=== PATIENT | male | born 1965 | race African-American/Black ===

== ENCOUNTER 2024-05-06 17:44 | Emergency (ER) | payer MEDICAID, MEDICARE, OTHER ==
[~2024-05-06] VITALS: Ht 185.4 cm; Wt 93.0 kg
[2024-05-06] MEDS: PREDNISONE 20MG TABLET PO STA (18:28)
[2024-05-06 18:46] VITALS: PULSE 85; RESP 24; O2SAT 95
[2024-05-06] MEDS: IPRATROPIUM BROMIDE (0.02%) 0.5MG/2.5ML NEB HHN STA (18:46)
[2024-05-06] MEDS: ALBUTEROL (0.083%) 2.5MG/3ML NEB HHN STA (18:46)
[2024-05-06 18:51] LABS: BASOPHILS % 0.8 % (0.0-2.0); EOSINOPHILS % 1.9 % (0.0-5.0); HEMATOCRIT. 41.9 % (42.0-52.0); HEMOGLOBIN. 14.4 g/dL (14.0-18.0); MEAN CORPUSCULAR HEMOGLOBIN 32.1 pg (28.0-32.0); MEAN CORPUSCULAR HGB CONC 34.4 g/dL (31.0-37.0); MEAN CORPUSCULAR VOLUME 93.5 fL (80.0-94.0); MEAN PLATELET VOLUME 9.9 fl (7.4-10.4); MONOCYTES % 14.6 % (2.0-8.0); NEUTROPHILS % 63.7 % (40.0-76.0); PLATELET 154 x1000/uL (130-400); RED BLOOD CELL COUNT 4.48 mill/uL (4.7-6.1); RED CELL DISTRIBUTION WIDTH 13.5 % (11.6-14.6); WHITE BLOOD COUNT 7.2 x1000/uL (4.5-11.0)
[2024-05-06 18:59] LABS: CHLORIDE 102 mEq/L (98-107); POTASSIUM 3.4 mEq/L (3.5-5.1); SODIUM 139 mEq/L (136-145)
[2024-05-06 19:00] LABS: CARBON DIOXIDE 30 mEq/L (21-32)
[2024-05-06 19:01] LABS: CALCIUM 9.6 mg/dL (8.7-10.4)
[2024-05-06 19:06] LABS: CREATININE 0.8 mg/dL (0.6-1.3); GLUCOSE 100 mg/dL (70-105); UREA NITROGEN BLOOD 14 mg/dL (9-23)
[2024-05-06 19:08] LABS: TROPONIN I HIGH SENSITIVITY 4 ng/L (3.0-53)
[2024-05-06] MEDS ORDERED: ERYT60GE9 TP (20:53)
[2024-05-06] MEDS ORDERED: SULF1TAB48 MT (20:53)
[2024-05-06 21:00] VITALS: BP 121/74; PULSE 96; RESP 29; TEMP 36.9; O2SAT 91
[2024-05-06] MEDS: SULFAMETHOXAZOLE/TRIMETHOPRIM 800/160MG TABLET PO ONE (21:15)
== END 2024-05-06 21:21 | disposition home or self-care (01) ==
LOC: ER 17:44
DX: B34.9 Viral infection, unspecified (principal); J44.9 Chronic obstructive pulmonary disease, unspecified; Z79.52 Long term (current) use of systemic steroids; Z79.899 Other long term (current) drug therapy; Z88.5 Allergy status to narcotic agent
CPT/HCPCS: 99285; 71045; 80048; 83880; 85025; 84484; 36415; 94664; 93005; J7512; 94640; A4606